=== PATIENT | male | born 1945 | race Caucasian/White ===

== ENCOUNTER 2016-05-24 15:57 | Emergency (ER) | payer OTHER ==
[2016-05-24 16:16] VITALS: BP 142/62; PULSE 88; TEMP 98; O2SAT 97
--- NOTE | 2016-05-24 16:50 | DX ---
1. Right Wrist, 4 views including a navicular view History: Pain post trauma. Fell on ice. Findings: There is a small dorsal triquetral avulsion fragment with overlying soft tissue swelling. T he carpal bones are normally aligned. There is a degenerative cyst in the navicular bone. No navicula r fracture is identified.. 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 Overa ll mineralization is normal. Impression: Triquetral avulsion. 2. Right Hand, 3 views History: Pain post fall Findings: The dorsal triquetral fragment is again identified. No hand fracture or dislocation is iden tified. There is chronic periosteal thickening along the palmar aspect of the middle phalanx of the f ourth finger that is consistent with chronic repetitive trauma or an old subperiosteal hematoma. Impression: Triquetral avulsion fracture.
--- NOTE | 2016-05-24 17:48 | UCPHY ---
H & P Time Seen by Provider: 05/24/16 17:18 Patient Type: New HPI/ROS: 71-year-old male slipped on ice hitting the back of his hand presents with bruising and swelling to the back of his hand states there is minimal pain there but came to get an x-ray. Review of systems As per HPI General no fever no chills no weakness HEENT no eye pain no eye discharge. No eye redness, no sore throat Respiratory no cough, no shortness of breath Cardiac no chest pain, no peripheral edema GI no abdominal pain, no diarrhea, no constipation, no nausea, no vomiting no flank pain, no hematuria, no dysuria Musculoskeletal no myalgias, no joint pain Heme no easy bruising, no easy bleeding Endo no polyuria, no polydipsia Skin no rashes, no pruritus Neuro no syncope, no dizziness, no headaches Psych is no suicidal ideation, no homicidal ideation Past Medical/Surgical History: Depression, GERD Social History: Went to [employer] for 2 years then went to an art school His current profession is banking Smoking Status: Never smoked Physical Exam: Alert and oriented in no acute distress nontoxic appearance, afebrile Atraumatic normocephalic Neck no JVD Lungs clear to auscultation, no respiratory distress Heart regular rate and rhythm Extremities no cyanosis clubbing edema Right hand with ecchymosis and mild swelling dorsal proximal aspect of hand with tenderness to palpation, no crepitus Full range of motion of wrist, metacarpals PIP PIP good capillary refill Able make a fist Able to oppose finger and thumb Constitutional: Initial Vital Signs Temperature (C) 36.6 C 05/24/16 16:14 Heart Rate 88 05/24/16 16:14 Blood Pressure 142/62 H 05/24/16 16:14 O2 Sat (%) 97 05/24/16 16:14 O2 Delivery Mode Room Air Allergies/Adverse Reactions: No Known Allergies Allergy (Verified 06/07/15 11:36) Home Medications: Medication Instructions Recorded Aspirin EC [Aspirin EC 81 mg (OTC)] 81 mg PO DAILY 09/12/11 FLUoxetine [Prozac 10 MG (RX)] 10 mg PO DAILY 09/12/11 Pantoprazole Sodium [Protonix 40mg 40 mg PO DAILY 09/12/11 (RX)] Albuterol 05/24/16 Aspirin 05/24/16 Medical Decision Making ED Course/Re-evaluation: Patient seen and evaluated for hand injury X-ray with positive triquetral avulsion fracture Patient refusing splint Given Velcro splint Advised to follow up with Ortho Departure - Departure Disposition: Home, Routine, Self-Care Clinical Impression: Triquetral chip fracture Condition: Good Instructions: Wrist Fracture in Adults (ED) Referrals: Roderick Soriano MD [Primary Care Provider] - As per Instructions Andrey Kinney MD [Medical Doctor] - As per Instructions - PQRS PQRS Measurement: na
== END 2016-05-24 17:58 | disposition home or self-care (01) ==
LOC: CED 15:57
DX: S62.111A Displaced fracture of triquetrum [cuneiform] bone, right wrist, initial encounter for closed fracture (principal); W00.0XXA Fall on same level due to ice and snow, initial encounter
CPT/HCPCS: 73110; 73130; G0463; L3908; 99203-PO

== ENCOUNTER 2016-08-25 18:15 | Emergency (ER) | payer OTHER ==
[2016-08-25 18:25] VITALS: RESP 16; O2SAT 95
--- NOTE | 2016-08-25 18:38 | CPEKG ---
Heart Rate: 78 RR Interval: 769 P-R Interval: 184 QRSD Interval: 90 QT Interval: 412 QTC Interval: 470 P [place]: 22 QRS [place]: 69 T Wave [place]: 68 EKG Severity - NORMAL ECG - EKG Impression: SINUS RHYTHM Electronically Signed By: Tanner Coffman 27-Aug-2016 14:25:01
[2016-08-25] MEDS ORDERED: ACETAMINOPHEN 325 MG TAB PO ONE (18:42)
[2016-08-25 18:58] LABS: % IMMATURE GRANULYOCYTES 0.3 % (0.0-1.1); ABSOLUTE IMMATURE GRANULOCYTES 0.02 10^3/uL (0.00-0.10); ADD DIFF? NO; ADD MORPH? NO; ADD SCAN? NO; ATYPICAL LYMPHOCYTE FLAG 20 (0-99); FRAGMENT RBC FLAG 0 (0-99); HEMOGLOBIN 15.7 g/dL (13.7-17.5); LEFT SHIFT FLG 0 (0-99); LIPEMIA HEMOLYSIS FLAG 90 (0-99); MEAN CELL HEMOGLOBIN 30.8 pg (27.9-34.1); MEAN CELL HEMOGLOBIN CONCENTR. 36.5 g/dL (32.4-36.7); MEAN CELL VOLUME 84.5 fL (81.5-99.8); MEAN PLATELET VOLUME 9.7 fL (8.7-11.7); PLATELET CLUMPS FLAG 0 (0-99); PLATELET COUNT 231 10^3/uL (150-400); RED BLOOD CELL COUNT 5.09 10^6/uL (4.40-6.38); RED CELL DISTRIBUTION WIDTH 12.3 % (11.5-15.2)
--- NOTE | 2016-08-25 18:59 | EDPHY ---
H & P Time Seen by Provider: 08/25/16 18:22 HPI/ROS: CHIEF COMPLAINT: Lack of energy HISTORY OF PRESENT ILLNESS: 71-year-old male with a history of asthma and borderline hypertension presents with decreased energy. Last night he stated [place]. This morning when he awoke, he noted that he had less energy than usual. He when out to cut some wood and felt more short of breath than he usually would at that elevation. He used his albuterol inhaler twice with some relief. However, he did not feel well and had vague abdominal discomfort throughout the morning and afternoon. The increased shortness of breath persisted and was associated with head pressure. He ate breakfast and lunch normally, but has not eaten dinner yet. He took his blood pressure just prior to arrival and it was elevated, which prompted his visit. His physician has wanted him to take blood pressure medication for quite some time, though he has declined. He does not feel short of breath right now, though feels the need to take a deep breath. He had a flu vaccination this year. No known fever or chills. No chest pain, cough, dysuria , vomiting or diarrhea. REVIEW OF SYSTEMS: Constitutional: No fever, no chills Eyes: No visual changes ENT: No sore throat Respiratory: No cough Cardiac: No chest pain Genitourinary: no dysuria Musculoskeletal: No leg pain or swelling Skin: No rash Neurological: no numbness, no weakness Psychiatric: No depression Past Medical/Surgical History: Asthma Borderline hypertension Social History: No recent alcohol Smoking Status: Never smoked Physical Exam: General Appearance: Alert, pleasant Eyes: Pupils equal and round, no conjunctival pallor or injection ENT, Mouth: Mucous membranes moist Neck: Normal inspection Respiratory: normal respiratory rate, expiratory wheezing in the lower lung monreal Cardiovascular: Regular rate and rhythm, no murmur gallop or rub Gastrointestinal: Abdomen is soft and nontender Neurological: A&O, nonfocal, normal gait Skin: Warm and dry Extremities: Nontender, no pedal edema Psychiatric: Mood and affect normal Constitutional: Initial Vital Signs Temperature (C) 37.2 C 08/25/16 18:21 Heart Rate 87 08/25/16 18:21 Respiratory Rate 16 08/25/16 18:21 Blood Pressure 175/95 H 08/25/16 18:21 O2 Sat (%) 95 08/25/16 18:21 O2 Delivery Mode Room Air Allergies/Adverse Reactions: No Known Allergies Allergy (Verified 08/25/16 18:25) Home Medications: Medication Instructions Recorded Aspirin EC [Aspirin EC 81 mg (OTC)] 81 mg PO DAILY 09/12/11 FLUoxetine [Prozac 10 MG (RX)] 10 mg PO DAILY 09/12/11 Pantoprazole Sodium [Protonix 40mg 40 mg PO DAILY 09/12/11 (RX)] Albuterol 05/24/16 Aspirin 05/24/16 Flonase Nasal [place] 08/25/16 Medical Decision Making - Diagnostics EKG Interpretation: EKG interpreted by me reveals normal sinus rhythm, rate 78, no ST or T segment changes. Imaging Results: Chest x-ray independently reviewed by me reveals no acute disease. ED Course/Re-evaluation: This patient presents with multiple symptoms. He has low-grade fever, shortness of breath and bronchospasm. He also has vague head and abdominal pressure. I suspect that he has an infection. Chest x-ray reveals no evidence of pneumonia and urinalysis is negative. After a DuoNeb and Tylenol, he feels much better. The shortness of breath has resolved. Chest is clear to auscultation. The abdominal fullness has resolved and the head pressure is almost gone. I do not feel that he needs further testing at this point. Abdomen is soft and nontender. Antibiotics are not indicated, given no obvious source of infection. I feel that he is safe and stable for discharge. I have informed him to follow up with his primary care physician in 1-2 days. He will return to the emergency department for worsening symptoms or any concerns. Differential Diagnosis: Differential diagnosis includes though not limited to pneumonia, urinary tract infection, sinusitis, acute coronary syndrome, pulmonary edema. - Data Points Laboratory Results: Laboratory Results 08/25/16 18:50 08/25/16 18:50 08/25/16 08/25/16 08/25/16 20:00 18:50 18:50 WBC 7.75 10^3/uL 10^3/uL (3.80-9.50) RBC 5.09 10^6/uL 10^6/uL (4.40-6.38) Hgb 15.7 g/dL g/dL (13.7-17.5) Hct 43.0 % % (40.0-51.0) MCV 84.5 fL fL (81.5-99.8) MCH 30.8 pg pg (27.9-34.1) MCHC 36.5 g/dL g/dL (32.4-36.7) RDW 12.3 % % (11.5-15.2) Plt Count 231 10^3/uL 10^3/uL (150-400) MPV 9.7 fL fL (8.7-11.7) Neut % (Auto) 72.9 % % (39.3-74.2) Lymph % (Auto) 11.2 % L % (15.0-45.0) [place] % (Auto) 8.8 % % (4.5-13.0) Eos % (Auto) 6.5 % % (0.6-7.6) Baso % (Auto) 0.3 % % (0.3-1.7) Nucleat RBC Rel Count 0.0 % % (0.0-0.2) Absolute Neuts (auto) 5.66 10^3/uL 10^3/uL (1.70-6.50) Absolute Lymphs (auto) 0.87 10^3/uL L 10^3/uL (1.00-3.00) Absolute Monos (auto) 0.68 10^3/uL 10^3/uL (0.30-0.80) Absolute Eos (auto) 0.50 10^3/uL H 10^3/uL (0.03-0.40) Absolute Basos (auto) 0.02 10^3/uL 10^3/uL (0.02-0.10) Absolute Nucleated RBC 0.00 10^3/uL 10^3/uL (0-0.01) Immature Gran % 0.3 % % (0.0-1.1) Immature Gran # 0.02 10^3/uL 10^3/uL (0.00-0.10) Sodium 138 mEq/L mEq/L (134-144) Potassium 3.9 mEq/L mEq/L (3.5-5.2) Chloride 99 mEq/L mEq/L (97-110) Carbon Dioxide 24 mEq/l mEq/l (22-31) Anion Gap 15 mEq/L mEq/L (8-16) BUN 24 mg/dL H mg/dL (7-23) Creatinine 0.9 mg/dL mg/dL (0.7-1.3) Estimated GFR > 60 Glucose 103 mg/dL H mg/dL (70-100) Calcium 9.3 mg/dL mg/dL (8.5-10.4) Troponin I < 0.012 ng/mL ng/mL (0-0.034) NT-Pro-B Natriuret Pep 41 pg/mL pg/mL (0-125) Urine Color YELLOW Urine Appearance CLEAR Urine pH 7.5 (5.0-7.5) Ur Specific [place] 1.010 (1.002-1.030) Urine Protein NEGATIVE (NEGATIVE) Urine Ketones NEGATIVE (NEGATIVE) Urine Blood NEGATIVE (NEGATIVE) Urine Nitrate NEGATIVE (NEGATIVE) Urine Bilirubin NEGATIVE (NEGATIVE) Urine Urobilinogen 0.2 EU EU (0.2-1.0) Ur Leukocyte Esterase NEGATIVE (NEGATIVE) Urine Glucose NEGATIVE (NEGATIVE) Medications Given: Discontinued Medications Acetaminophen (Tylenol) 650 mg PO EDNOW ONE Stop: 08/25/16 18:43 Last Admin: 08/25/16 18:55 Dose: 650 mg Albuterol/Ipratropium (Duoneb) 3 ml IH EDNOW ONE Stop: 08/25/16 19:01 Last Admin: 08/25/16 19:10 Dose: 3 ml Sodium Chloride (Ns) 500 mls @ 0 mls/hr IV ONCE ONE PRN Reason: As Directed Stop: 08/25/16 19:14 Last Admin: 08/25/16 19:30 Dose: 500 mls Departure - Departure Disposition: Home, Routine, Self-Care Clinical Impression: Bronchospasm Dyspnea Qualifiers: Dyspnea type: shortness of breath Qualified Code(s): R06.02 - Shortness of breath Condition: Good Instructions: Dyspnea (ED), Bronchospasm (ED) Additional Instructions: Use your albuterol inhaler as needed for wheezing and shortness of breath. Take Tylenol as needed for fever. Return for worsening symptoms or any concerns. Referrals: Roderick Soriano MD [Primary Care Provider] - 1-2 days without fail
[2016-08-25] MEDS ORDERED: IPRATROPIUM/ALBUTEROL 3 ML DEYVIAL IH ONE (19:00)
[2016-08-25 19:11] LABS: ANION GAP 15 mEq/L (8-16); CALCIUM 9.3 mg/dL (8.5-10.4); CARBON DIOXIDE 24 mEq/l (22-31); CHLORIDE 99 mEq/L (97-110); CREATININE 0.9 mg/dL (0.7-1.3); GLOMERULAR FILTRATION RATE > 60; GLUCOSE 103 mg/dL (70-100); POTASSIUM 3.9 mEq/L (3.5-5.2); SODIUM 138 mEq/L (134-144)
[2016-08-25] MEDS ORDERED: NS 500 ML IV ONE (19:13)
[2016-08-25 19:21] LABS: TROPONIN I < 0.012 ng/mL (0-0.034)
[2016-08-25 20:07] VITALS: BP 132/88; PULSE 78; TEMP 98.2
[2016-08-25 20:09] LABS: COLOR YELLOW; LEUKOCYTE ESTERASE,URINE NEGATIVE (NEGATIVE); NITRITE,URINE NEGATIVE (NEGATIVE); PH,URINE 7.5 (5.0-7.5)
== END 2016-08-25 20:35 | disposition home or self-care (01) ==
LOC: CED 18:15
DX: J98.01 Acute bronchospasm (principal); Z79.82 Long term (current) use of aspirin
CPT/HCPCS: 71020-PO; 80048-PO; 81003-PO; 83880-PO; 84484-PO; 85025-PO

== ENCOUNTER → 2016-09-10 | Outpatient (CLI) | payer OTHER | LOC: CIMAGING 15:13 | PROVIDERS: ATTEND Internal Medicine | DX: R07.81 Pleurodynia (principal); M54.6 Pain in thoracic spine; M54.5 Low back pain; M25.551 Pain in right hip; M79.651 Pain in right thigh | CPT/HCPCS: 71101-PO; 72070-PO; 72100-PO; 73502-PO; 73551-PO; G0463-PO ==

== ENCOUNTER → 2017-01-09 | Outpatient (CLI) | payer OTHER | LOC: CLAB 13:54 | PROVIDERS: ATTEND Internal Medicine | DX: J44.9 Chronic obstructive pulmonary disease, unspecified (principal); J40 Bronchitis, not specified as acute or chronic | CPT/HCPCS: 71020; G0463 ==